=== PATIENT | male | born 1975 | race African-American/Black ===

== ENCOUNTER 2016-09-28 08:56 | Emergency (ER) | payer OTHER ==
[~2016-09-28 08:56] MED LIST: OMEP20CA3 PO
[2016-09-28 09:43] LABS: BASO % 0.7 % (0.0-1.0); EOS # 0.1 K/mm3 (0.0-0.50); EOS % 3.2 % (0.0-3.0); LARGE UNSTAINED CELL # 0.2 K/mm3 (0.0-0.4); LARGE UNSTAINED CELL % 5.9 % (0.0-4.0); LYMPH # 1.2 K/mm3 (1.5-4.5); LYMPH % 30.5 % (24.0-44.0); MEAN CORPUSCULAR HEMOGLOBIN 25.7 pg (27.0-33.0); MEAN CORPUSCULAR HGB CONC 34.8 g/dl (32.0-36.5); MEAN CORPUSCULAR VOLUME 73.9 fl (80.0-96.0); MONO # 0.2 K/mm3 (0.0-0.8); MONO % 6.1 % (0.0-5.0); NEUTROPHILS # 2.2 K/mm3 (1.8-7.7); NEUTROPHILS % 53.7 % (36.0-66.0); PLATELET COUNT, AUTOMATED 202 k/mm3 (150-450); RED CELL DISTRIBUTION WIDTH 13.8 % (11.5-14.5)
--- NOTE | 2016-09-28 09:52 | REP ---
Chest x-ray: Two views. History: Chest pain. . Comparison study: No comparison studies . Findings: The lungs are well inflated and free of infiltrate. The pleural angles are sharp. The heart size is normal. Pulmonary vasculature is not increased. No significant bony abnormality is seen. EKG monitoring electrodes are seen. Impression: Negative chest x-ray. Signed by Mike Harvey MD 09/28/2016 09:44 A
[2016-09-28 10:05] LABS: ANION GAP 9 MEQ/L (8-16); BLOOD UREA NITROGEN 9 MG/DL (7-18); CARBON DIOXIDE LEVEL 25 MEQ/L (21-32); CHLORIDE LEVEL 103 MEQ/L (98-107); CREATININE FOR GFR 0.91 MG/DL (0.70-1.30); GLOMERULAR FILTRATION RATE > 60.0 (>60); GLUCOSE, FASTING 117 MG/DL (70-105); SODIUM LEVEL 137 MEQ/L (136-145)
[2016-09-28] MEDS ORDERED: AZITHROMYCIN 250 MG TAB As Ordered ONE (11:01)
--- NOTE | 2016-09-28 11:10 | EDDOCDS ---
Nurse's Notes [facility] Name: Andrew Parekh Age: 41 yrs Sex: Male : 1975 Arrival Date: 09/28/2016 Time: 08:56 Bed 11 Private MD: Diagnosis: Acute bronchitis;Chest pain, unspecified-with cough alone; brief Presentation: 09/28 09:05 Presenting complaint: EMS states: pt with cold symptoms 2 days with cough beginning kc3 yesterday with chest and back pain when coughing. Adult Sepsis Screening: The patient does not have new or worsening altered mentation. Patient's respiratory rate is less than 22. Systolic blood pressure is greater than 100. Patient has a qSOFA score of 0- Negative Sepsis Screen. Suicide/Homicide risk assessment- the patient denies having any suicidal and/or homicidal ideations and does not present with any other emotional, behavioral or mental health complaints. 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 Transition of care: patient was received from a primary care office; [facility]. 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 kc3 Triage Assessment: 09:10 General: Appears in no apparent distress, comfortable, Behavior is appropriate for age, kc3 cooperative. Pain: Denies pain. HIV screening NA for this visit Offered previously. The patient is triaged at the bedside. See Assessment in Nurses Notes section of ED record. Neurological: Level of Consciousness is awake, alert, obeys commands, Oriented to person, place, time. Cardiovascular: Chest pain is described as Pain is 4 out of 10 on a pain scale. 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 Respiratory: Airway is patent Respiratory effort is even, unlabored, Respiratory pattern is regular, symmetrical, Breath sounds are clear bilaterally. Reports cough that is productive. GI: Denies nausea. Derm: Skin is normal. Musculoskeletal: Circulation, motion, and sensation intact. Historical: - Allergies: no known allergies; - Home Meds: 1. none - PMHx: none; - PSHx: acl left; - Social history: Smoking status: Patient states was never smoker of tobacco. No barriers to communication noted, The patient speaks fluent Sami, Speaks appropriately for age. - Family history: Not pertinent. - : The pt / caregiver states he / she is not on anticoagulants. Home medication list is obtained from the patient. - Exposure Risk Screening:: None identified. Screenin:09 Screening information is obtained from the patient. Fall risk: No risks identified. kc3 Assistance ADL's: requires no assistance with activities of daily living. Abuse/DV Screen: The patient / caregiver reports he/she is: not in a situation that causes fear, pain or injury. Nutritional screening: No deficits noted. home support is adequate. 09:15 Advance Directives: Currently, there is a health care proxy, Gracy Tolentino, significant kc3 other. Assessment: 09:16 General: See triage for initial assessment. . kc3 10:00 General: Appears in no apparent distress, comfortable, Behavior is appropriate for age, kc3 cooperative. Pain: Denies pain. Neurological: Level of Consciousness is awake, alert, obeys commands, Oriented to person, place, time. Cardiovascular: Rhythm is sinus rhythm. Respiratory: Respiratory effort is even, unlabored. Derm: Skin is normal. 11:08 General: Appears in no apparent distress, comfortable, Behavior is appropriate for age, kc3 cooperative. Pain: Denies pain. Neurological: Level of Consciousness is awake, alert, obeys commands. Cardiovascular: Rhythm is sinus rhythm. Respiratory: Respiratory effort is even, unlabored. Derm: Skin is normal. Vital Signs: 09:10 BP 133 / 85; Pulse 68; Resp 18; Temp 98.0(O); Pulse Ox 97% on R/A; Weight 104.33 kg ct3 (R); Height 5 ft. 10 in. (177.80 cm) (R); Pain 0/10; 09:51 BP 138 / 91 (auto/); kc3 09:51 Pulse 68 MON; Pulse Ox 98% ; kc3 10:06 BP 129 / 81 (auto/); kc3 10:06 Pulse 72 MON; Pulse Ox 97% ; kc3 10:21 BP 129 / 75 (auto/); kc3 10:21 Pulse 72 MON; Pulse Ox 95% ; kc3 10:35 Pulse 68 MON; Pulse Ox 96% ; kc3 10:36 BP 125 / 70 (auto/); kc3 10:50 Pulse 74 MON; Pulse Ox 98% ; kc3 10:51 BP 129 / 73 (auto/); kc3 11:09 BP 131 / 75; Pulse 88; Resp 18; Temp 96.3(O); Pulse Ox 99% on R/A; Pain 0/10; kc3 09:10 Body Mass Index 33.00 (104.33 kg, 177.80 cm) ct3 Vitals: 09:15 Log In Time N/A - ambulance arrival. ct3 ED Course: 08:57 Patient visited by Yasmin Gil, Sleep Scientist. deg 08:57 Patient moved to Waiting deg 09:03 Patient moved to 11 ct3 09:04 Antwan Quintanilla MD is Attending Physician. ml 09:04 Patient visited by Antwan Quintanilla MD. ml 09:07 Triage Initiated kc3 09:09 Maintain field IV. Dressing intact. Site clean & dry. Gauge & site: 20G right hand. kc3 09:10 Patient has correct armband on for positive identification. Placed in gown. Bed in low ct3 position. Call light in reach. Side rails up X 1. monitoring tech on. Pulse ox on. NIBP on. 09:10 EKG done. (by ED staff). Reviewed by Antwan Quintanilla MD. ct3 09:17 The patient / caregiver is instructed regarding the plan of care and ED course. kc3 09:33 Troponin Sent. kc3 09:33 CIP Sent. kc3 09:33 MED Profile Sent. kc3 09:34 Patient visited by Corin Warner,HATTIE. kc3 09:34 Corin Warner,RN is Primary Nurse. kc3 09:34 CBC with Diff Sent. kc3 09:58 [facility] Payment Agreement was scanned into [employer] and attached to record. lg 10:05 Patient visited by Corin Warner RN. kc3 10:16 Chest, 2 View (pa\E\lat) Returned. EDMS 10:47 Patient visited by Harmony Flower PCA. jlf 10:49 [facility] is Referral Physician. ml 11:09 Discontinued IV lock intact, bleeding controlled, pressure dressing applied, No kc3 redness/swelling at site. No procedures done that require assistance. Administered Medications: 11:10 Drug: azithromycin 500 mg [azithromycin 250 mg tablet (2 tabs)] Route: PO; kc3 Order Results: Lab Order: CBC with Diff; SPEC'M 09/28/16 09:21 Test: WHITE BLOOD COUNT; Value: 4.0; Range: 4.0-10.0; Units: K/mm3; Status: F Test: RED BLOOD COUNT; Value: 5.89; Range: 4.30-6.10; Units: M/mm3; Status: F Test: HEMOGLOBIN; Value: 15.2; Range: 14.0-18.0; Units: g/dl; Status: F Test: HEMATOCRIT; Value: 43.6; Range: 42.0-52.0; Units: %; Status: F Test: MEAN CORPUSCULAR VOLUME; Value: 73.9; Range: 80.0-96.0; Abnormal: Below low normal; Units: fl; Status: F Test: MEAN CORPUSCULAR HEMOGLOBIN; Value: 25.7; Range: 27.0-33.0; Abnormal: Below low normal; Units: pg; Status: F Test: MEAN CORPUSCULAR HGB CONC; Value: 34.8; Range: 32.0-36.5; Units: g/dl; Status: F Test: RED CELL DISTRIBUTION WIDTH; Value: 13.8; Range: 11.5-14.5; Units: %; Status: F Test: PLATELET COUNT, AUTOMATED; Value: 202; Range: 150-450; Units: k/mm3; Status: F Test: NEUTROPHILS %; Value: 53.7; Range: 36.0-66.0; Units: %; Status: F Test: LYMPH %; Value: 30.5; Range: 24.0-44.0; Units: %; Status: F Test: MONO %; Value: 6.1; Range: 0.0-5.0; Abnormal: Above high normal; Units: %; Status: F Test: EOS %; Value: 3.2; Range: 0.0-3.0; Abnormal: Above high normal; Units: %; Status: F Test: BASO %; Value: 0.7; Range: 0.0-1.0; Units: %; Status: F Test: LARGE UNSTAINED CELL %; Value: 5.9; Range: 0.0-4.0; Abnormal: Above high normal; Units: %; Status: F Test: NEUTROPHILS #; Value: 2.2; Range: 1.8-7.7; Units: K/mm3; Status: F Test: LYMPH #; Value: 1.2; Range: 1.5-4.5; Abnormal: Below low normal; Units: K/mm3; Status: F Test: MONO #; Value: 0.2; Range: 0.0-0.8; Units: K/mm3; Status: F Test: EOS #; Value: 0.1; Range: 0.0-0.50; Units: K/mm3; Status: F Test: BASO #; Value: 0.0; Range: 0.0-0.2; Units: K/mm3; Status: F Test: LARGE UNSTAINED CELL #; Value: 0.2; Range: 0.0-0.4; Units: K/mm3; Status: F Lab Order: MED Profile; SPEC'M 09/28/16 09:21 Test: GLUCOSE, FASTING; Value: 117; Range: 70-105; Abnormal: Above high normal; Units: MG/DL; Status: F Test: BLOOD UREA NITROGEN; Value: 9; Range: 7-18; Units: MG/DL; Status: F Test: CREATININE FOR GFR; Value: 0.91; Range: 0.70-1.30; Units: MG/DL; Status: F Test: GLOMERULAR FILTRATION RATE; Value: > 60.0; Range: >60; Status: F Test: SODIUM LEVEL; Value: 137; Range: 136-145; Units: MEQ/L; Status: F Test: POTASSIUM SERUM; Value: 4.0; Range: 3.5-5.1; Units: MEQ/L; Status: F Test: CHLORIDE LEVEL; Value: 103; Range: 98-107; Units: MEQ/L; Status: F Test: CARBON DIOXIDE LEVEL; Value: 25; Range: 21-32; Units: MEQ/L; Status: F Test: ANION GAP; Value: 9; Range: 8-16; Units: MEQ/L; Status: F Test: CALCIUM LEVEL; Value: 9.0; Range: 8.5-10.1; Units: MG/DL; Status: F Test Note: ; Units are mL/min/1.73 m2 Chronic Kidney Disease Staging per NKF: Stage I & II GFR >=60 Normal to Mildly Decreased Stage III GFR 30-59 Moderately Decreased Stage IV GFR 15-29 Severely Decreased Stage V GFR <15 Very Little GFR Left ESRD GFR <15 on AERONAUTICAL DESIGN ENGINEER Lab Order: CIP; SPEC'M 09/28/16 09:21 Test: CPK CREATINE PHOSPHOKINASE; Value: 312; Range: 39-308; Abnormal: Above high normal; Units: U/L; Status: F Test: CK-MB VALUE MASS; Value: 1.1; Range: 0.0-3.6; Units: NG/ML; Status: F Test: MB/CK RELATIVE INDEX; Value: 0.35; Range: < OR =4; Status: F Test Note: ; DIAGNOSIS CRITERIA MMB ng/ml Relative Index (RI) NON-AMI < or = 5 N/A SANDHU ZONE > 5 < or = 4 AMI > 5 > 4 Lab Order: Troponin; SPEC'M 09/28/16 09:21 Test: TROPONIN I; Value: < 0.02; Range: < 0.10; Units: NG/ML; Status: F Test Note: ; Troponin I Reference Interval for [employer] LOCI: 99th Percentile= 0.00-0.045 ng/ml Risk Stratification: <= 0.10 ng/ml Decreased Risk for Adverse Clinical Events. 0.10-1.50 ng/ml Increased Risk for Adverse Clinical Events. Evaluation of additional criterion and/or repeat testing in 2-6 hours is suggested to rule out myocardial damage. >= 1.50 ng/ml Indicative of Myocardial Injury. Radiology Order: Chest, 2 View (pa\E\lat) Test: Chest, 2 View (pa\E\lat) REASON FOR EXAMINATION: Chest Pain; Chest x-ray: Two views.; ; History: Chest pain. .; ; Comparison study: No comparison studies .; ; Findings: The lungs are well inflated and free of infiltrate. The pleural; angles are sharp. The heart size is normal. Pulmonary vasculature is not; increased. No significant bony abnormality is seen. EKG monitoring electrodes; are seen.; ; Impression:; ; Negative chest x-ray.; ; ; Signed by; Mike Harvey MD 09/28/2016 09:44 A; Outcome: 10:49 Discharge ordered by Provider. ml 11:09 Discharge Assessment: Patient awake, alert and oriented x 3. No cognitive and/or kc3 functional deficits noted. Patient verbalized understanding of disposition instructions. patient administered narcotics - no. The following High Risk Discharge criteria are identified: None. Discharged to home ambulatory. Condition: stable. Discharge instructions given to patient, Instructed on discharge instructions, follow up and referral plans. medication usage, Demonstrated understanding of instructions, medications, Pt was receptive of discharge instructions/ teaching. Prescriptions given X 1. No special radiology studies were completed. Property :Personal belongings accompany Pt. 11:10 Patient left the ED. kc3 Signatures: Dispatcher [employer] EDMS Gilson-Antwan Sandhu MD MD ml Murray, Denise, Sleep Scientist Unit deg Swetha Varner, Reg Reg lg Brisa Aldridge, BUSINESS SERVICES COORDINATOR BUSINESS SERVICES COORDINATOR ct3 Harmony Flower, BUSINESS SERVICES COORDINATOR BUSINESS SERVICES COORDINATOR luisf Corin Warner,HATTIE RN kc3 KERI
--- NOTE | 2016-09-28 11:10 | EDDOCDS ---
Physician Documentation [facility] Name: Andrew Parekh Age: 41 yrs Sex: Male : 1975 Arrival Date: 09/28/2016 Time: 08:56 Bed 11 Private MD: Disposition: 09/28/16 10:49 Discharged to Home/Self Care. Impression: Acute bronchitis, Chest pain, unspecified - with cough alone; brief. - Condition is Stable. - Discharge Instructions: Acute Bronchitis, Chest Wall Pain. - Prescriptions for Zithromax Z- Anil 250 mg Oral Tablet - take 1 tablet by ORAL route as directed for 5 days Day 1- take two tablets once. Day 2, 3, 4 , 5 take one tablet once daily.; 6 tablet. - Medication Reconciliation, Local Pharmacy Hours form. - Follow up: [facility] Estrada [facility]; When: Today. - Problem is new. - Symptoms have improved. - Notes: follow up with pcp today; i recommend a few days off from PT. return if worsening symptoms Historical: - Allergies: no known allergies; - Home Meds: 1. none - PMHx: none; - PSHx: acl left; - Social history: Smoking status: Patient states was never smoker of tobacco. No barriers to communication noted, The patient speaks fluent Palauan, Speaks appropriately for age. - Family history: Not pertinent. - : The pt / caregiver states he / she is not on anticoagulants. Home medication list is obtained from the patient. - Exposure Risk Screening:: None identified. Vital Signs: 09/28 09:10 BP 133 / 85; Pulse 68; Resp 18; Temp 98.0(O); Pulse Ox 97% on R/A; Weight 104.33 kg / ct3 230.01 lbs (R); Height 5 ft. 10 in. (177.80 cm) (R); Pain 0/10; 09:51 BP 138 / 91 (auto/); kc3 09:51 Pulse 68 MON; Pulse Ox 98% ; kc3 10:06 BP 129 / 81 (auto/); kc3 10:06 Pulse 72 MON; Pulse Ox 97% ; kc3 10:21 BP 129 / 75 (auto/); kc3 10:21 Pulse 72 MON; Pulse Ox 95% ; kc3 10:35 Pulse 68 MON; Pulse Ox 96% ; kc3 10:36 BP 125 / 70 (auto/); kc3 10:50 Pulse 74 MON; Pulse Ox 98% ; kc3 10:51 BP 129 / 73 (auto/); kc3 11:09 BP 131 / 75; Pulse 88; Resp 18; Temp 96.3(O); Pulse Ox 99% on R/A; Pain 0/10; kc3 09:10 Body Mass Index 33.00 (104.33 kg, 177.80 cm) ct3 MDM: 09:05 ECG WITH READING ER PHYS+CARDIAG ordered. EDMS 09:16 IV Saline Lock ordered. ml 09:16 Trolley Wire Installer/Pulse Ox/q 15 min VS ordered. ml 09:16 Rhythm Strip to chart ordered. ml 09:17 CBC with Diff Ordered. EDMS 09:17 MED Profile Ordered. EDMS 09:17 CIP Ordered. EDMS 09:17 Troponin Ordered. EDMS 09:17 Chest, 2 View (pa\E\lat) Ordered. EDMS 09:39 Financial registration complete. lg 09:58 [facility] Payment Agreement was scanned into [employer] and attached to record. lg 10:33 CBC with Diff Reviewed. ml 10:33 MED Profile Reviewed. ml 10:33 CIP Reviewed. ml 10:33 Troponin Reviewed. ml 10:33 Chest, 2 View (pa\E\lat) Reviewed. ml 10:48 azithromycin 500 mg PO once ordered. ml Administered Medications: 11:10 Drug: azithromycin 500 mg [azithromycin 250 mg tablet (2 tabs)] Route: PO; kc3 Signatures: Dispatcher [employer] EDUT Antwan Quintanilla MD MD ml Swetha Varner, Reg Reg Corin Warner,HATTIE RN kc3 The chart was reviewed and I authenticate all verbal orders and agree with the evaluation and treatment provided.Attachments: 09:58 [facility] [place] Agreement lg MTDD
--- NOTE | 2016-09-28 17:29 | ECGEPIP ---
Stationary ECG Study [facility] - ED Test Date: 2016-09-28 Pat Name: ROLAND LAROSE Department: Room: - Gender: M Binder Coverstitch: ct : 1975 Requested By: Antwan Quintanilla Order Number: [id number] Reading MD: Xavier Marcus Measurements Intervals [place] Rate: 72 P: 51 RI: 198 QRS: 16 QRSD: 92 T: 4 QT: 377 QTc: 415 Interpretive Statements SINUS RHYTHM BORDERLINE 1ST DEGREE AV BLOCK NONSPECIFIC ST ELEVATION, LIKELY EARLY REPOLARIZATION NO PRIORS Electronically Signed On 09-28-2016 17:29:22 EST by Xavier Marcus
--- NOTE | 2016-09-30 12:11 | EDDOCDS ---
Physician Documentation [facility] Name: Andrew Parekh Age: 41 yrs Sex: Male : 1975 Arrival Date: 09/28/2016 Time: 08:56 Bed 11 Private MD: Disposition: 09/28/16 10:49 Discharged to Home/Self Care. Impression: Acute bronchitis, Chest pain, unspecified - with cough alone; brief. - Condition is Stable. - Discharge Instructions: Acute Bronchitis, Chest Wall Pain. - Prescriptions for Zithromax Z- Anil 250 mg Oral Tablet - take 1 tablet by ORAL route as directed for 5 days Day 1- take two tablets once. Day 2, 3, 4 , 5 take one tablet once daily.; 6 tablet. - Medication Reconciliation, Local Pharmacy Hours form. - Follow up: [facility]; When: Today. - Problem is new. - Symptoms have improved. - Notes: follow up with pcp today; i recommend a few days off from PT. return if worsening symptoms Historical: - Allergies: no known allergies; - Home Meds: 1. none - PMHx: none; - PSHx: acl left; - Social history: Smoking status: Patient states was never smoker of tobacco. No barriers to communication noted, The patient speaks fluent Beninese, Speaks appropriately for age. - Family history: Not pertinent. - : The pt / caregiver states he / she is not on anticoagulants. Home medication list is obtained from the patient. - Exposure Risk Screening:: None identified. Vital Signs: 09/28 09:10 BP 133 / 85; Pulse 68; Resp 18; Temp 98.0(O); Pulse Ox 97% on R/A; Weight 104.33 kg / ct3 230.01 lbs (R); Height 5 ft. 10 in. (177.80 cm) (R); Pain 0/10; 09:51 BP 138 / 91 (auto/); kc3 09:51 Pulse 68 MON; Pulse Ox 98% ; kc3 10:06 BP 129 / 81 (auto/); kc3 10:06 Pulse 72 MON; Pulse Ox 97% ; kc3 10:21 BP 129 / 75 (auto/); kc3 10:21 Pulse 72 MON; Pulse Ox 95% ; kc3 10:35 Pulse 68 MON; Pulse Ox 96% ; kc3 10:36 BP 125 / 70 (auto/); kc3 10:50 Pulse 74 MON; Pulse Ox 98% ; kc3 10:51 BP 129 / 73 (auto/); kc3 11:09 BP 131 / 75; Pulse 88; Resp 18; Temp 96.3(O); Pulse Ox 99% on R/A; Pain 0/10; kc3 09:10 Body Mass Index 33.00 (104.33 kg, 177.80 cm) ct3 MDM: 09:05 ECG WITH READING ER PHYS+CARDIAG ordered. EDMS 09:16 IV Saline Lock ordered. ml 09:16 Gauge Machine Operator/Pulse Ox/q 15 min VS ordered. ml 09:16 Rhythm Strip to chart ordered. ml 09:17 CBC with Diff Ordered. EDMS 09:17 MED Profile Ordered. EDMS 09:17 CIP Ordered. EDMS 09:17 Troponin Ordered. EDMS 09:17 Chest, 2 View (pa\E\lat) Ordered. EDMS 09:39 Financial registration complete. lg 09:58 [facility] Payment Agreement was scanned into [employer] and attached to record. lg 10:33 CBC with Diff Reviewed. ml 10:33 MED Profile Reviewed. ml 10:33 CIP Reviewed. ml 10:33 Troponin Reviewed. ml 10:33 Chest, 2 View (pa\E\lat) Reviewed. ml 10:48 azithromycin 500 mg PO once ordered. ml 14:18 ECG/EKG was scanned into [employer] and attached to record. gb 14:18 PCR was scanned into [employer] and attached to record. 09/29 10:43 T-Sheet-- Draft Copy was scanned into [employer] and attached to record. gb 10:44 Radiology Report was scanned into [employer] and attached to record. gb Administered Medications: 09/28 11:10 Drug: azithromycin 500 mg [azithromycin 250 mg tablet (2 tabs)] Route: PO; kc3 Signatures: Dispatcher [employer] EDMS Antwan Quintanilla MD MD ml Patt Limon, Reg Reg gb Swetha Varner, Reg Reg lg Corin Warner RN RN kc3 The chart was reviewed and I authenticate all verbal orders and agree with the evaluation and treatment provided.Attachments: 09:58 [facility] Payment Agreement lg 14:18 ECG/EKG 01/24 10:43 T-Sheet-- Draft Copy gb Chart Complete MTDD
--- NOTE | 2016-09-30 12:12 | EDDOCDS ---
Physician Documentation [facility] Name: Andrew Parekh Age: 41 yrs Sex: Male : 1975 Arrival Date: 09/28/2016 Time: 08:56 Bed 11 Private MD: Disposition: 09/28/16 10:49 Discharged to Home/Self Care. Impression: Acute bronchitis, Chest pain, unspecified - with cough alone; brief. - Condition is Stable. - Discharge Instructions: Acute Bronchitis, Chest Wall Pain. - Prescriptions for Zithromax Z- Anil 250 mg Oral Tablet - take 1 tablet by ORAL route as directed for 5 days Day 1- take two tablets once. Day 2, 3, 4 , 5 take one tablet once daily.; 6 tablet. - Medication Reconciliation, Local Pharmacy Hours form. - Follow up: [facility] Estrada [facility]; When: Today. - Problem is new. - Symptoms have improved. - Notes: follow up with pcp today; i recommend a few days off from PT. return if worsening symptoms Historical: - Allergies: no known allergies; - Home Meds: 1. none - PMHx: none; - PSHx: acl left; - Social history: Smoking status: Patient states was never smoker of tobacco. No barriers to communication noted, The patient speaks fluent Kazakh, Speaks appropriately for age. - Family history: Not pertinent. - : The pt / caregiver states he / she is not on anticoagulants. Home medication list is obtained from the patient. - Exposure Risk Screening:: None identified. Vital Signs: 09/28 09:10 BP 133 / 85; Pulse 68; Resp 18; Temp 98.0(O); Pulse Ox 97% on R/A; Weight 104.33 kg / ct3 230.01 lbs (R); Height 5 ft. 10 in. (177.80 cm) (R); Pain 0/10; 09:51 BP 138 / 91 (auto/); kc3 09:51 Pulse 68 MON; Pulse Ox 98% ; kc3 10:06 BP 129 / 81 (auto/); kc3 10:06 Pulse 72 MON; Pulse Ox 97% ; kc3 10:21 BP 129 / 75 (auto/); kc3 10:21 Pulse 72 MON; Pulse Ox 95% ; kc3 10:35 Pulse 68 MON; Pulse Ox 96% ; kc3 10:36 BP 125 / 70 (auto/); kc3 10:50 Pulse 74 MON; Pulse Ox 98% ; kc3 10:51 BP 129 / 73 (auto/); kc3 11:09 BP 131 / 75; Pulse 88; Resp 18; Temp 96.3(O); Pulse Ox 99% on R/A; Pain 0/10; kc3 09:10 Body Mass Index 33.00 (104.33 kg, 177.80 cm) ct3 MDM: 09:05 ECG WITH READING ER PHYS+CARDIAG ordered. EDMS 09:16 IV Saline Lock ordered. ml 09:16 Loom Fixer Helper/Pulse Ox/q 15 min VS ordered. ml 09:16 Rhythm Strip to chart ordered. ml 09:17 CBC with Diff Ordered. EDMS 09:17 MED Profile Ordered. EDMS 09:17 CIP Ordered. EDMS 09:17 Troponin Ordered. EDMS 09:17 Chest, 2 View (pa\E\lat) Ordered. EDMS 09:39 Financial registration complete. lg 09:58 [facility] Payment Agreement was scanned into [employer] and attached to record. lg 10:33 CBC with Diff Reviewed. ml 10:33 MED Profile Reviewed. ml 10:33 CIP Reviewed. ml 10:33 Troponin Reviewed. ml 10:33 Chest, 2 View (pa\E\lat) Reviewed. ml 10:48 azithromycin 500 mg PO once ordered. ml 14:18 ECG/EKG was scanned into [employer] and attached to record. gb 14:18 PCR was scanned into [employer] and attached to record. 09/29 10:43 T-Sheet-- Draft Copy was scanned into [employer] and attached to record. gb 10:44 Radiology Report was scanned into [employer] and attached to record. gb Administered Medications: 09/28 11:10 Drug: azithromycin 500 mg [azithromycin 250 mg tablet (2 tabs)] Route: PO; kc3 Signatures: Dispatcher [employer] EDMS Antwan Quintanilla MD MD ml Patt Limon, Reg Reg gb Swetha Varner, Reg Reg lg Corin Warner RN RN kc3 The chart was reviewed and I authenticate all verbal orders and agree with the evaluation and treatment provided.Attachments: 09:58 [facility] Payment Agreement lg 14:18 ECG/EKG 01/24 10:43 T-Sheet-- Draft Copy gb Chart Complete MTDD
--- NOTE | 2016-09-30 12:12 | EDDOCDS ---
Nurse's Notes [facility] Name: Andrew Parekh Age: 41 yrs Sex: Male : 1975 Arrival Date: 09/28/2016 Time: 08:56 Bed 11 Private MD: Diagnosis: Acute bronchitis;Chest pain, unspecified-with cough alone; brief Presentation: 09/28 09:05 Presenting complaint: EMS states: pt with cold symptoms 2 days with cough beginning kc3 yesterday with chest and back pain when coughing. Adult Sepsis Screening: The patient does not have new or worsening altered mentation. Patient's respiratory rate is less than 22. Systolic blood pressure is greater than 100. Patient has a qSOFA score of 0- Negative Sepsis Screen. Suicide/Homicide risk assessment- the patient denies having any suicidal and/or homicidal ideations and does not present with any other emotional, behavioral or mental health complaints. 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 Transition of care: patient was received from a primary care office; [facility]. 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 kc3 Triage Assessment: 09:10 General: Appears in no apparent distress, comfortable, Behavior is appropriate for age, kc3 cooperative. Pain: Denies pain. HIV screening NA for this visit Offered previously. The patient is triaged at the bedside. See Assessment in Nurses Notes section of ED record. Neurological: Level of Consciousness is awake, alert, obeys commands, Oriented to person, place, time. Cardiovascular: Chest pain is described as Pain is 4 out of 10 on a pain scale. 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 Respiratory: Airway is patent Respiratory effort is even, unlabored, Respiratory pattern is regular, symmetrical, Breath sounds are clear bilaterally. Reports cough that is productive. GI: Denies nausea. Derm: Skin is normal. Musculoskeletal: Circulation, motion, and sensation intact. Historical: - Allergies: no known allergies; - Home Meds: 1. none - PMHx: none; - PSHx: acl left; - Social history: Smoking status: Patient states was never smoker of tobacco. No barriers to communication noted, The patient speaks fluent Chinese, Speaks appropriately for age. - Family history: Not pertinent. - : The pt / caregiver states he / she is not on anticoagulants. Home medication list is obtained from the patient. - Exposure Risk Screening:: None identified. Screenin:09 Screening information is obtained from the patient. Fall risk: No risks identified. kc3 Assistance ADL's: requires no assistance with activities of daily living. Abuse/DV Screen: The patient / caregiver reports he/she is: not in a situation that causes fear, pain or injury. Nutritional screening: No deficits noted. home support is adequate. 09:15 Advance Directives: Currently, there is a health care proxy, Gracy Tolentino, significant kc3 other. Assessment: 09:16 General: See triage for initial assessment. . kc3 10:00 General: Appears in no apparent distress, comfortable, Behavior is appropriate for age, kc3 cooperative. Pain: Denies pain. Neurological: Level of Consciousness is awake, alert, obeys commands, Oriented to person, place, time. Cardiovascular: Rhythm is sinus rhythm. Respiratory: Respiratory effort is even, unlabored. Derm: Skin is normal. 11:08 General: Appears in no apparent distress, comfortable, Behavior is appropriate for age, kc3 cooperative. Pain: Denies pain. Neurological: Level of Consciousness is awake, alert, obeys commands. Cardiovascular: Rhythm is sinus rhythm. Respiratory: Respiratory effort is even, unlabored. Derm: Skin is normal. Vital Signs: 09:10 BP 133 / 85; Pulse 68; Resp 18; Temp 98.0(O); Pulse Ox 97% on R/A; Weight 104.33 kg ct3 (R); Height 5 ft. 10 in. (177.80 cm) (R); Pain 0/10; 09:51 BP 138 / 91 (auto/); kc3 09:51 Pulse 68 MON; Pulse Ox 98% ; kc3 10:06 BP 129 / 81 (auto/); kc3 10:06 Pulse 72 MON; Pulse Ox 97% ; kc3 10:21 BP 129 / 75 (auto/); kc3 10:21 Pulse 72 MON; Pulse Ox 95% ; kc3 10:35 Pulse 68 MON; Pulse Ox 96% ; kc3 10:36 BP 125 / 70 (auto/); kc3 10:50 Pulse 74 MON; Pulse Ox 98% ; kc3 10:51 BP 129 / 73 (auto/); kc3 11:09 BP 131 / 75; Pulse 88; Resp 18; Temp 96.3(O); Pulse Ox 99% on R/A; Pain 0/10; kc3 09:10 Body Mass Index 33.00 (104.33 kg, 177.80 cm) ct3 Vitals: 09:15 Log In Time N/A - ambulance arrival. ct3 ED Course: 08:57 Patient visited by Yasmin Gil, Client Services Associate. deg 08:57 Patient moved to Waiting deg 09:03 Patient moved to 11 ct3 09:04 Antwan Quintanilla MD is Attending Physician. ml 09:04 Patient visited by Antwan Quintanilla MD. ml 09:07 Triage Initiated kc3 09:09 Maintain field IV. Dressing intact. Site clean & dry. Gauge & site: 20G right hand. kc3 09:10 Patient has correct armband on for positive identification. Placed in gown. Bed in low ct3 position. Call light in reach. Side rails up X 1. monitor and storage bin tender on. Pulse ox on. NIBP on. 09:10 EKG done. (by ED staff). Reviewed by Antwan Quintanilla MD. ct3 09:17 The patient / caregiver is instructed regarding the plan of care and ED course. kc3 09:33 Troponin Sent. kc3 09:33 CIP Sent. kc3 09:33 MED Profile Sent. kc3 09:34 Patient visited by Corin Warner,HATTIE. kc3 09:34 Corin Warner,RN is Primary Nurse. kc3 09:34 CBC with Diff Sent. kc3 09:58 [facility] Payment Agreement was scanned into [employer] and attached to record. lg 10:05 Patient visited by Corin Warner,HATTIE. kc3 10:16 Chest, 2 View (pa\E\lat) Returned. EDMS 10:47 Patient visited by Harmony Flower PCA. jlf 10:49 Oscar Estrada [facility] is Referral Physician. ml 11:09 Discontinued IV lock intact, bleeding controlled, pressure dressing applied, No kc3 redness/swelling at site. No procedures done that require assistance. 14:18 ECG/EKG was scanned into [employer] and attached to record. gb 14:18 PCR was scanned into [employer] and attached to record. gb 17:50 EKG-ADULT Returned. EDNE 09/29 10:43 T-Sheet-- Draft Copy was scanned into [employer] and attached to record. gb 10:44 Radiology Report was scanned into [employer] and attached to record. gb Administered Medications: 09/28 11:10 Drug: azithromycin 500 mg [azithromycin 250 mg tablet (2 tabs)] Route: PO; kc3 Order Results: Lab Order: CBC with Diff; SPEC'M 09/28/16 09:21 Test: WHITE BLOOD COUNT; Value: 4.0; Range: 4.0-10.0; Units: K/mm3; Status: F Test: RED BLOOD COUNT; Value: 5.89; Range: 4.30-6.10; Units: M/mm3; Status: F Test: HEMOGLOBIN; Value: 15.2; Range: 14.0-18.0; Units: g/dl; Status: F Test: HEMATOCRIT; Value: 43.6; Range: 42.0-52.0; Units: %; Status: F Test: MEAN CORPUSCULAR VOLUME; Value: 73.9; Range: 80.0-96.0; Abnormal: Below low normal; Units: fl; Status: F Test: MEAN CORPUSCULAR HEMOGLOBIN; Value: 25.7; Range: 27.0-33.0; Abnormal: Below low normal; Units: pg; Status: F Test: MEAN CORPUSCULAR HGB CONC; Value: 34.8; Range: 32.0-36.5; Units: g/dl; Status: F Test: RED CELL DISTRIBUTION WIDTH; Value: 13.8; Range: 11.5-14.5; Units: %; Status: F Test: PLATELET COUNT, AUTOMATED; Value: 202; Range: 150-450; Units: k/mm3; Status: F Test: NEUTROPHILS %; Value: 53.7; Range: 36.0-66.0; Units: %; Status: F Test: LYMPH %; Value: 30.5; Range: 24.0-44.0; Units: %; Status: F Test: MONO %; Value: 6.1; Range: 0.0-5.0; Abnormal: Above high normal; Units: %; Status: F Test: EOS %; Value: 3.2; Range: 0.0-3.0; Abnormal: Above high normal; Units: %; Status: F Test: BASO %; Value: 0.7; Range: 0.0-1.0; Units: %; Status: F Test: LARGE UNSTAINED CELL %; Value: 5.9; Range: 0.0-4.0; Abnormal: Above high normal; Units: %; Status: F Test: NEUTROPHILS #; Value: 2.2; Range: 1.8-7.7; Units: K/mm3; Status: F Test: LYMPH #; Value: 1.2; Range: 1.5-4.5; Abnormal: Below low normal; Units: K/mm3; Status: F Test: MONO #; Value: 0.2; Range: 0.0-0.8; Units: K/mm3; Status: F Test: EOS #; Value: 0.1; Range: 0.0-0.50; Units: K/mm3; Status: F Test: BASO #; Value: 0.0; Range: 0.0-0.2; Units: K/mm3; Status: F Test: LARGE UNSTAINED CELL #; Value: 0.2; Range: 0.0-0.4; Units: K/mm3; Status: F Lab Order: MED Profile; SPEC'M 09/28/16 09:21 Test: GLUCOSE, FASTING; Value: 117; Range: 70-105; Abnormal: Above high normal; Units: MG/DL; Status: F Test: BLOOD UREA NITROGEN; Value: 9; Range: 7-18; Units: MG/DL; Status: F Test: CREATININE FOR GFR; Value: 0.91; Range: 0.70-1.30; Units: MG/DL; Status: F Test: GLOMERULAR FILTRATION RATE; Value: > 60.0; Range: >60; Status: F Test: SODIUM LEVEL; Value: 137; Range: 136-145; Units: MEQ/L; Status: F Test: POTASSIUM SERUM; Value: 4.0; Range: 3.5-5.1; Units: MEQ/L; Status: F Test: CHLORIDE LEVEL; Value: 103; Range: 98-107; Units: MEQ/L; Status: F Test: CARBON DIOXIDE LEVEL; Value: 25; Range: 21-32; Units: MEQ/L; Status: F Test: ANION GAP; Value: 9; Range: 8-16; Units: MEQ/L; Status: F Test: CALCIUM LEVEL; Value: 9.0; Range: 8.5-10.1; Units: MG/DL; Status: F Test Note: ; Units are mL/min/1.73 m2 Chronic Kidney Disease Staging per NKF: Stage I & II GFR >=60 Normal to Mildly Decreased Stage III GFR 30-59 Moderately Decreased Stage IV GFR 15-29 Severely Decreased Stage V GFR <15 Very Little GFR Left ESRD GFR <15 on SURVEYOR HELPER ROD Lab Order: CIP; SPEC'M 09/28/16 09:21 Test: CPK CREATINE PHOSPHOKINASE; Value: 312; Range: 39-308; Abnormal: Above high normal; Units: U/L; Status: F Test: CK-MB VALUE MASS; Value: 1.1; Range: 0.0-3.6; Units: NG/ML; Status: F Test: MB/CK RELATIVE INDEX; Value: 0.35; Range: < OR =4; Status: F Test Note: ; DIAGNOSIS CRITERIA MMB ng/ml Relative Index (RI) NON-AMI < or = 5 N/A CONWAY ZONE > 5 < or = 4 AMI > 5 > 4 Lab Order: Troponin; SPEC'M 09/28/16 09:21 Test: TROPONIN I; Value: < 0.02; Range: < 0.10; Units: NG/ML; Status: F Test Note: ; Troponin I Reference Interval for Siemens Gainsight LOCI: 99th Percentile= 0.00-0.045 ng/ml Risk Stratification: <= 0.10 ng/ml Decreased Risk for Adverse Clinical Events. 0.10-1.50 ng/ml Increased Risk for Adverse Clinical Events. Evaluation of additional criterion and/or repeat testing in 2-6 hours is suggested to rule out myocardial damage. >= 1.50 ng/ml Indicative of Myocardial Injury. 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 .; ; Comparison study: No comparison studies .; ; Findings: The lungs are well inflated and free of infiltrate. The pleural; angles are sharp. The heart size is normal. Pulmonary vasculature is not; increased. No significant bony abnormality is seen. EKG monitoring electrodes; are seen.; ; Impression:; ; Negative chest x-ray.; ; ; Signed by; Mike Harvey MD 09/28/2016 09:44 A; Outcome: 10:49 Discharge ordered by Provider. ml 11:09 Discharge Assessment: Patient awake, alert and oriented x 3. No cognitive and/or kc3 functional deficits noted. Patient verbalized understanding of disposition instructions. patient administered narcotics - no. The following High Risk Discharge criteria are identified: None. Discharged to home ambulatory. Condition: stable. Discharge instructions given to patient, Instructed on discharge instructions, follow up and referral plans. medication usage, Demonstrated understanding of instructions, medications, Pt was receptive of discharge instructions/ teaching. Prescriptions given X 1. No special radiology studies were completed. Property :Personal belongings accompany Pt. 11:10 Patient left the ED. kc3 Signatures: Dispatcher [employer] EDMS Antwan Quintanilla MD MD ml Murray, Denise, Client Services Associate Unit deg Patt Limon, Reg Reg gb Swetha Varner, Reg Reg lg Aldridge, Brisa, WEATHER REPORTER WEATHER REPORTER ct3 Harmony Flower, WEATHER REPORTER WEATHER REPORTER jlf Corin Warner,RN RN kc3 Chart Complete MTDD
== END 2016-09-28 11:10 | disposition home or self-care (01) ==
LOC: M ED 08:56
DX: J20.9 Acute bronchitis, unspecified (principal); R07.9 Chest pain, unspecified